=== PATIENT | male | born 1985 ===

== ENCOUNTER 2022-01-26 13:59 | Emergency (ER) | payer SELFPAY ==
[~2022-01-26] VITALS: Ht 175.3 cm; Wt 73.0 kg
[2022-01-26 14:04] VITALS: BP 122/76
== END 2022-01-26 17:34 | disposition left against medical advice (07) ==
LOC: ER 13:59
DX: F10.129 Alcohol abuse with intoxication, unspecified (principal); I10 Essential (primary) hypertension; Z88.0 Allergy status to penicillin; Y90.9 Presence of alcohol in blood, level not specified
CPT/HCPCS: 99283